=== PATIENT | female | born 1970 | race Caucasian/White ===

== ENCOUNTER 2023-06-22 22:24 | Inpatient (IN) | payer BC ==
[2023-06-22] MEDS: MORPHINE SULFATE 4 MG/ML SYRINGE IV STA (23:55)
--- NOTE | 2023-06-23 01:34 | P.GSHP ---
History of Present Illness H&P Date: 06/23/23 CHIEF COMPLAINT: Right lower quadrant abdominal pain with appendicitis for over 1 day. HISTORY OF PRESENT ILLNESS: The patient is a 53-year-old female who presents with over 24-hour history of generalized pain, now localized to right lower quadrant abdominal abdomen pain. at bedside giveS additional history where patient has personal history of perforated bowel following tubal ligation many years ago. Patient was transferred from outside facility [facility] with diagnosis of acute appendicitis. Abdominal pain has been present for less than 36 but more than 24 hours. PAST MEDICAL HISTORY: See list and reviewed PAST SURGICAL HISTORY: See list and reviewed CURRENT MEDICATIONS: See list and reviewed ALLERGIES: See list and reviewed SOCIAL HISTORY: See list and reviewed FAMILY HISTORY: See list and reviewed REVIEW OF ORGAN SYSTEMS: CONSTITUTIONAL: Present fever, no chills. Denies recent weight loss. HEENT: Denies any trouble with vision, hearing or nosebleeds. No difficulty swallowing. LYMPHATIC: The patient denies any lumps and bumps around the neck. ENDOCRINE: Denies any thyroid disorders. Denies any blood sugar glucose intolerance. RESPIRATORY: Denies shortness of breath including chronic cough. CARDIOVASCULAR: Denies history of chest pain with exertion. GASTROINTESTINAL: Prior perforated bowel during gynecological procedure. GENITOURINARY: Denies any blood in urine or increased urinary frequency. MUSCULOSKELETAL: Denies current joint arthritis. NEUROLOGIC: Denies any numbness or tingling along the distal extremities. No seizure disorders or headaches. PSYCHIATRIC: Denies any depression or suicidal ideation. HEMATOLOGIC: Denies any abnormal bleeding or bruising. PHYSICAL EXAMINATION: VITALS: Reviewed. GENERAL: Well-developed and in no acute distress. Pleasant. HEENT: No sclera icterus. Extraocular movements grossly intact. Moist buccal mucosa. Head is atraumatic, normocephalic. Hears conversational speech. No nasal drainage. NECK: Supple without lymphadenopathy. No JV distention. CHEST: Non-labored respirations and equal bilateral excursions. CARDIOVASCULAR: Regular rate and rhythm. Palpable 2+ radial pulses. ABDOMEN: Right lower quadrant pain without peritonitis. MUSCULOSKELETAL: No clubbing, cyanosis or edema. NEUROLOGIC: No focal or lateralizing signs. PSYCH: Appropriate affect. Alert and oriented to person, place and time. SKIN: Well perfused. Good skin turgor. STUDIES: CT of the abdomen and pelvis report demonstrated appendicitis without rupture ASSESSMENT: 1. Right lower quadrant pain. 2. Appendicitis PLAN: 1. I have discussed benefits and risks of robotic appendectomy. 2. Bilateral SCDs. 3. Patient is elevated risk due to pre-existing history of pelvic surgery with complication of perforated bowel and risk of adhesions. Past Medical History Past Medical History: Hyperlipidemia, Hypertension Additional Past Medical History / Comment(s): AAA History of Any Multi-Drug Resistant Organisms: None Reported Past Surgical History: Bowel Resection, Section Past Psychological History: No Psychological Hx Reported Smoking Status: Current every day smoker Past Alcohol Use History: None Reported Past Drug Use History: None Reported Medications and Allergies Allergies Allergy/AdvReac Type Severity Reaction Status Date / Time No Known Allergies Allergy Verified 06/22/23 22:37 Surgical - Exam Vital Signs Temp Pulse Resp BP Pulse Ox 102.3 F H 122 H 20 142/81 92 L 06/22/23 22:26 06/22/23 22:26 06/22/23 22:26 06/22/23 22:26 06/22/23 22:26
[2023-06-23] MEDS ORDERED: NALOXONE 0.4 MG/ML 1 ML VIAL IV PRN (01:36)
[2023-06-23] MEDS ORDERED: ONDANSETRON 4 MG/2 ML VIAL IVP PRN (01:36)
[2023-06-23] MEDS ORDERED: HYDROmorphone 1 MG/ML 1 ML SYRINGE IVP PRN (01:36)
[2023-06-23] MEDS ORDERED: ACETAMINOPHEN TAB 325 MG TAB PO PRN (01:36)
--- NOTE | 2023-06-23 01:50 | ED ---
Abdominal Pain HPI - General Chief Complaint: Abdominal Pain Stated Complaint: ABD Pain Time Seen by Provider: 06/22/23 22:38 Source: patient, EMS Mode of arrival: EMS Limitations: no limitations - History of Present Illness Initial Comments: This patient is a 53-year-old woman who is transferred here from [facility]. The patient had gone there to have evaluation for abdominal pain, greatest in the right lower quadrant that has been present for the past day. The patient's workup there included CT scan that was read as demonstrating acute appendicitis. The patient was then transferred here. Complaint: abdominal pain Onset/Timin -: days(s) Location: RLQ Radiation: none Migration to: no migration Severity: severe Quality: aching Consistency: constant Improves With: nothing Worsens With: nothing Associated Symptoms: nausea - Related Data Home Medications Medication Instructions Recorded Confirmed Cyclobenzaprine [Flexeril] 5 - 10 mg PO HS PRN 06/23/23 06/23/23 Losartan [Cozaar] 25 mg PO DAILY 06/23/23 06/23/23 Simvastatin [Zocor] 10 mg PO HS 06/23/23 06/23/23 Previous Rx's Medication Instructions Recorded Acetaminophen Tab [Tylenol] 1,000 mg PO Q6HR PRN #30 tablet 06/25/23 Amoxic-Pot Clav 875-125Mg 1 tab PO Q12HR 10 Days #20 tab 06/25/23 [Augmentin 875-125] Ibuprofen [Motrin] 600 mg PO Q8HR PRN #30 tab 06/25/23 Metoprolol Tartrate [Lopressor] 12.5 mg PO BID #90 tab 06/25/23 Allergies Allergy/AdvReac Type Severity Reaction Status Date / Time No Known Allergies Allergy Verified 06/23/23 09:19 Review of Systems ROS Statement: Those systems with pertinent positive or pertinent negative responses have been documented in the HPI. ROS Other: All systems not noted in ROS Statement are negative. Constitutional: Denies: fever, chills Respiratory: Denies: cough, dyspnea Cardiovascular: Denies: chest pain, palpitations Gastrointestinal: Reports: abdominal pain, nausea. Denies: vomiting, diarrhea, constipation, melena, hematochezia Genitourinary: Denies: dysuria, hematuria Musculoskeletal: Denies: back pain Skin: Denies: rash Neurological: Denies: headache, weakness, numbness Hematological/Lymphatic: Denies: easy bleeding Past Medical History Past Medical History: Hyperlipidemia, Hypertension Additional Past Medical History / Comment(s): AAA History of Any Multi-Drug Resistant Organisms: None Reported Past Surgical History: Bowel Resection, Section Past Psychological History: No Psychological Hx Reported Smoking Status: Current every day smoker Past Alcohol Use History: None Reported Past Drug Use History: None Reported General Exam Limitations: no limitations General appearance: alert, in no apparent distress Head exam: Present: atraumatic, normocephalic Eye exam: Present: normal appearance. Absent: scleral icterus, conjunctival injection Respiratory exam: Present: normal lung sounds bilaterally. Absent: respiratory distress, wheezes, rales, rhonchi, stridor, accessory muscle use Cardiovascular Exam: Present: normal rhythm, tachycardia, normal heart sounds. Absent: systolic murmur, diastolic murmur, rubs, gallop GI/Abdominal exam: Present: soft, tenderness, guarding, rebound. Absent: distended, rigid, mass, pulsatile mass, hernia Extremities exam: Present: normal inspection, normal capillary refill. Absent: pedal edema, calf tenderness Back exam: Present: normal inspection. Absent: CVA tenderness (R), CVA tenderness (L) Neurological exam: Present: alert Skin exam: Present: warm, dry, intact, normal color. Absent: rash Course Vital Signs 06/22/23 06/22/23 06/23/23 22:26 22:37 00:00 Temperature 102.3 F H 98.6 F Pulse Rate 122 H 88 109 H Pulse Rate [ Pulse Oximetery ] Respiratory 20 18 18 Rate Blood Pressure 142/81 196/103 124/71 Blood Pressure [Left Arm] O2 Sat by Pulse 92 L 98 93 L Oximetry 06/23/23 06/23/23 01:00 02:35 Temperature 98.3 F Pulse Rate 112 H Pulse Rate [ 112 H Pulse Oximetery ] Respiratory 19 16 Rate Blood Pressure 102/57 Blood Pressure 96/55 [Left Arm] O2 Sat by Pulse 96 96 Oximetry Medical Decision Making - Medical Decision Making Was pt. sent in by a medical professional or institution (, PA, [employer], urgent care, hospital, or longterm...) When possible be specific @ -Patient is transferred here from outside hospital Did you speak to anyone other than the patient for history (EMS, parent, family, police, friend...)? What history was obtained from this source @ -[No] Did you review nursing and triage notes (agree or disagree)? Why? @ -[I reviewed and agree with nursing and triage notes] Were old charts reviewed (outside hosp., previous admission, EMS record, old EKG, old radiological studies, urgent care reports/EKG's, longterm records)? Report findings @ -[I reviewed the charts from the outside hospital Differential Diagnosis (chest pain, altered mental status, abdominal pain women, abdominal pain men, vaginal bleeding, weakness, fever, dyspnea, syncope, headache, dizziness, GI bleed, back pain, seizure, CVA, palpatations, mental health, musculoskeletal)? @ -[no differential Abdominal Pain Women: Appendicitis, Cholecystitis, diverticulosis, ischemic bowel, pancreatitis, hepatitis, UTI, gastroenteritis, AAA, incarcerated hernia, bowel obstruction, constipation, inflammatory bowel, hepatitis, peptic ulcer disease, splenic infarction, perforated viscus, vulvitis, ovarian torsion, PID, kidney stone, placenta abruption, this is not meant to be an all-inclusive list EKG interpreted by me (3pts min.). @ -[As above] X-rays interpreted by me (1pt min.). @ -[None done] CT interpreted by me (1pt min.). @ -[None done] U/S interpreted by me (1pt. min.). @ -[None done] What testing was considered but not performed or refused? (CT, X-rays, U/S, labs)? Why? @ -[None] What meds were considered but not given or refused? Why? @ -[None] Did you discuss the management of the patient with other professionals (professionals i.e. , PA, [employer], lab, RT, psych nurse, social service agency director, land surveyor assistant, teacher, special service officer, field case manager)? Give summary @ -[Case discussed with the surgeon who will admit and will take to the OR. Was smoking cessation discussed for >3mins.? @ -[No] Was critical care preformed (if so, how long)? @ -[No] Were there social determinants of health that impacted care today? How? (Homelessness, low income, unemployed, alcoholism, drug addiction, transportation, low edu. Level, literacy, decrease access to med. care, long term, rehab)? @ -[No] Was there de-escalation of care discussed even if they declined (Discuss DNR or withdrawal of care, Hospice)? DNR status @ -[No] What co-morbidities impacted this encounter? (DM, HTN, Smoking, COPD, CAD, Cancer, CVA, ARF, Chemo, Hep., AIDS, mental health diagnosis, sleep apnea, morbid obesity)? @ -[None] Was patient admitted / discharged? Hospital course, mention meds given and route, prescriptions, significant lab abnormalities, going to OR and other pertinent info. @ -[Patient admitted with the intent of going to OR. Fluids are continued patient is NPO. Undiagnosed new problem with uncertain prognosis? @ -[No] Drug Therapy requiring intensive monitoring for toxicity (Heparin, Nitro, Insulin, Cardizem)? @ -[No] Were any procedures done? @ -[No] Diagnosis/symptom? @ -[Acute appendicitis Acute, or Chronic, or Acute on Chronic? @ -[Acute Uncomplicated (without systemic symptoms) or Complicated (systemic symptoms)? @ -[Uncomplicated Side effects of treatment? @ -[No] Exacerbation, Progression, or Severe Exacerbation? @ -[No] Poses a threat to life or bodily function? How? (Chest pain, USA, [place], pneumonia, PE, COPD, DKA, ARF, appy, cholecystitis, CVA, Diverticulitis, Homicidal, Suicidal, threat to staff... and all critical care pts) @ -[No] - Lab Data Result diagrams: 06/25/23 10:44 06/25/23 10:44 Disposition Clinical Impression: Appendicitis Disposition: ADMITTED IP TO THIS [facility] Condition: Stable Is patient prescribed a controlled substance at d/c from ED?: No
[2023-06-23] MEDS: SODIUM CHLORIDE 0.9% 1,000 ML IV SCH (02:14)
[2023-06-23] MEDS: HEPARIN SODIUM,PORCINE 5,000 UNIT/ML 1 ML VIAL SQ STA (02:15)
[2023-06-23] MEDS: DEXAMETHASONE SOD PHOSPHATE 4 MG/ML 1 ML VIAL IV ONE (02:23)
[2023-06-23] MEDS: ONDANSETRON 4 MG/2 ML VIAL IVP ONE (02:30)
[2023-06-23] MEDS: KETOROLAC 15 MG/ML 1 ML VIAL IVP SCH (02:30)
[2023-06-23] MEDS: metroNIDAZOLE-NS PMX 500 MG in SALINE 100 100ML.BAG IVPB STA (02:30)
[2023-06-23] MEDS: IV FLUID CONTINUATION 1,000 ML IV ONE (02:35)
[2023-06-23] MEDS ORDERED: LIDOCAINE 1% INJ 10MG/ML (20 ML MDV) ONE (02:50)
[2023-06-23] MEDS ORDERED: PHENYLEPHRINE-0.9% NACL SYG 1,000 MCG/10 ML SYRINGE ONE (02:50)
[2023-06-23] MEDS ORDERED: NEOSTIGMINE 1 MG/ML 10 ML VIAL ONE (02:50)
[2023-06-23] MEDS ORDERED: DEXAMETHASONE SOD PHOSPHATE 4 MG/ML 1 ML VIAL ONE (02:50)
[2023-06-23] MEDS ORDERED: fentaNYL (PF) 50 MCG/ML 2 ML AMP ONE (02:50)
[2023-06-23] MEDS ORDERED: ROCURONIUM 10 MG/ML (5 ML VIAL) IV ONE (02:50)
[2023-06-23] MEDS ORDERED: PROPOFOL 10 MG/ML 20 ML VIAL IV ONE (02:50)
[2023-06-23] MEDS ORDERED: MIDAZOLAM 2 MG/2 ML VIAL ONE (02:50)
[2023-06-23] MEDS ORDERED: GLYCOPYRROLATE 0.2 MG/ML 2 ML VIAL ONE (02:50)
[2023-06-23] MEDS ORDERED: SUCCINYLCHOLINE CHLORIDE 200 MG/10 ML VIAL IV ONE (02:50)
[2023-06-23 03:10] LABS: ALT 11 U/L (4-34); AST 16 U/L (14-36); African American GFR (CKD) >90 (>60 ml/min/1.73 sqM); Albumin 3.1 g/dL (3.5-5.0); Alkaline Phosphatase 75 U/L (38-126); Anion Gap 6 mmol/L; Blood Urea Nitrogen 8 mg/dL (7-17); Calcium 7.9 mg/dL (8.4-10.2); Carbon Dioxide 23 mmol/L (22-30); Chloride 108 mmol/L (98-107); Glucose 120 mg/dL (74-99); Non-African American GFR(CKD) >90 (>60 ml/min/1.73 sqM); Potassium 4.2 mmol/L (3.5-5.1); Sodium 137 mmol/L (137-145); Total Bilirubin 0.8 mg/dL (0.2-1.3); Total Protein 5.8 g/dL (6.3-8.2)
[2023-06-23] MEDS: LIDOCAINE 1%-EPI 1:100,000 20 ML VIAL SQ ONE (03:13)
[2023-06-23 03:38] LABS: Basophils % (A) 0 %; Eosinophils # (A) 0.1 k/uL (0-0.7); Eosinophils % (A) 0 %; HCT 39.4 % (34.0-46.0); HGB 12.6 gm/dL (11.4-16.0); Lymphocytes % (A) 5 %; MCH 30.6 pg (25.0-35.0); MCHC 32.1 g/dL (31.0-37.0); MCV 95.5 fL (80.0-100.0); Mean Platelet Volume 7.8; Monocytes # (A) 0.7 k/uL (0-1.0); Monocytes % (A) 4 %; Neutrophils # (A) 17.5 k/uL (1.3-7.7); Neutrophils % (A) 91 %; Platelet Count 347 k/uL (150-450); RBC 4.12 m/uL (3.80-5.40); WBC 19.3 k/uL (3.8-10.6)
--- NOTE | 2023-06-23 04:04 | P.PN ---
Progress Note - Text Progress Note Date: 06/23/23 Patient family gives additional history of fevers while at outside facility and presently with white count over 19,000. Presentation consistent with sepsis. Sepsis protocol initiated. Family also disclosed new abdominal aortic aneurysm almost 6 cm in size. Vascular consultation to be obtained.
--- NOTE | 2023-06-23 04:07 | P.OP ---
Date of Procedure: 06/23/23 Description of Procedure: SURGEON: AARTI KARIMI MD Preoperative Diagnosis: 1. Acute appendicitis 2. Sepsis due to acute appendicitis 3. Hyperlipidemia 4. Hypertensive heart disease 5. Abdominal aortic aneurysm Postoperative Diagnosis: 1. Gangrene appendicitis with sepsis and localized right lower quadrant peritonitis, microperforation 2. Sepsis due to acute appendicitis 3. Hyperlipidemia 4. Hypertensive heart disease 5. Abdominal aortic aneurysm Procedure(s) Performed: 1. Robotic-assisted daVinci Xi laparoscopic appendectomy Anesthesia: GETA, local Estimated Blood Loss (ml): 5 Pathology: other (appendix), aerobic anaerobic cultures Condition: stable Disposition: floor Operative Findings: 1. Gangrene appendicitis involving the entire appendix with localized right lower quadrant peritonitis 2. Terminal ileum unremarkable 3. Cecum unremarkable INDICATIONS: The patient is a 53-year-old female who presents with acute appendicitis including sepsis. Benefits and risks, including infection, open surgery, and bleeding for additional surgery was discussed at length. Informed consent was obtained. All questions of the patient and family were answered. Emergent surgical intervention were described. DESCRIPTION: The patient was transferred to the operating room and placed in supine position. The patient had previously voided. The abdomen was then prepped and draped in standard sterile fashion as Ioban was placed along the abdomen to minimize any contamination of skin floor. After a timeout protocol was performed, attention was then brought to the left upper quadrant whereby a 0 degree 5 mm laparoscopic trocar entry was performed. The abdominal cavity was entered and insufflated to 12 mmHg pressure, which was tolerated well. Diagnostic laparoscopy demonstrated no injury to bowel, viscera or mesentery. Next a robotic 8-mm trocar was placed along the left lower quadrant, 10-cm lateral to the midline. A 12 mm port was placed along the left upper quadrant and another 8-mm port left lateral abdominal wall. Ports were placed 8 cm apart from each other including 15-20 cm away from the target anatomy of the right pelvis. The patient was then placed in Trendelenburg position, at least 14 down and right side up at least 7. The robotic da Jv XI system was primed and docked from the left side of the patient. Using atraumatic graspers and vessel sealer, the robotic system was docked and primed as described. Instruments were interchanged by the instructional support assistant including graspers, robotic stapler and vessel sealer. Next, attention was brought to identify the cecum. A systematic view within the abdominal cavity was started with the small bowel which was unremarkable. The base of the cecum was unremarkable. Necrosis of the entire appendix was identified with localized inflammation and peritonitis identified with high risk of microperforation. The appendix was dissected free from its surrounding tissues. Blue 45 mm robotic staple loads were fired along the base of the appendix. The staple line was hemostatic. Hemostasis was checked prior to undocking the robot. The robot was undocked. I re-scrubbed into the case. The specimen was removed from the abdominal cavity with an Endo Catch bag through the 12 mm trocar at the left upper quadrant. Aerobic anaerobic cultures were obtained of the appendix. All instruments and pneumoperitoneum were evacuated from the abdominal cavity. Local anesthetic was infiltrated to all wounds for postop analgesia. All incisions were also cleansed with diluted hydrogen peroxide. The incisions were closed with 4-0 Monocryl. Exofin glue was applied to the rest of the skin incisions. The patient had tolerated the procedure well. The patient was extubated successfully. The patient was transferred to the postanesthesia care unit in stable condition.
[2023-06-23] MEDS: LACTATED RINGERS 1,000 ML IV SCH (05:04)
[2023-06-23] MEDS: SODIUM CHLORIDE 0.9% 500 ML 500 ML IV SCH (05:05)
[2023-06-23] MEDS: ACETAMINOPHEN TAB 500 MG TAB PO SCH (05:37)
[2023-06-23 06:05] LABS: ALT 10 U/L (4-34); AST 16 U/L (14-36); African American GFR (CKD) >90 (>60 ml/min/1.73 sqM); Albumin 2.9 g/dL (3.5-5.0); Albumin/Globulin Ratio 1.1; Alkaline Phosphatase 75 U/L (38-126); Anion Gap 6 mmol/L; Blood Urea Nitrogen 7 mg/dL (7-17); Calcium 7.6 mg/dL (8.4-10.2); Carbon Dioxide 21 mmol/L (22-30); Chloride 110 mmol/L (98-107); Globulin 2.7 g/dL; Glucose 139 mg/dL (74-99); Non-African American GFR(CKD) >90 (>60 ml/min/1.73 sqM); Potassium 3.8 mmol/L (3.5-5.1); Sodium 137 mmol/L (137-145); Total Bilirubin 0.5 mg/dL (0.2-1.3); Total Protein 5.6 g/dL (6.3-8.2)
[2023-06-23 06:08] LABS: INR 1.2 (<1.2); Partial Thromboplastin Time 27.1 sec (22.0-30.0); Prothrombin Time 12.4 sec (10.0-12.5)
[2023-06-23] MEDS: HEPARIN SODIUM,PORCINE 5,000 UNIT/ML 1 ML VIAL SQ SCH (08:43)
[2023-06-23] MEDS: PANTOPRAZOLE 40 MG/10 ML VIAL IV SCH (08:43)
--- NOTE | 2023-06-23 12:10 | P.CRDCN ---
History of Present Illness Consult date: 06/23/23 Requesting physician: Viji Amin Reason for Consult (text): elevated troponin Chief complaint: abdominal pain History of present illness: This is a pleasant 53-year-old female patient who does not follow regularly with cardiology. She has had no previous cardiac workup. She has a history of hypertension, hyperlipidemia and current nicotine dependence smoking 1 pack/day. She presented to [facility] with complaints of abdominal pain that started the night before at which time she had diarrhea. CT scan showed evidence of acute appendicitis with incidental finding of 5.7 cm AAA which has not been diagnosed in the past. She had evidence of sepsis secondary to the appendicitis. She was transferred here and underwent appendectomy by Dr. Amin. The appendix was gangrenous with sepsis and localized right lower quadrant peritonitis, microperforation. She is currently on IV antibiotics. Overall she is feeling sore and quite tired. We were asked to see the patient in consultation due to postoperative troponin elevation which came back at 0.351 and 0.596. EKG upon arrival to our ER here showed diffuse ST T wave abnormalities with no prior to compare. EKG this morning showed improvement in the ST-T wave changes. She denies any complaints of chest discomfort, shortness of breath, orthopnea, PND, palpitations, dizziness, lightheadedness or syncope. Blood pressure is on the low side. Past Medical History Past Medical History: Hyperlipidemia, Hypertension Additional Past Medical History / Comment(s): AAA, smoker History of Any Multi-Drug Resistant Organisms: None Reported Past Surgical History: Appendectomy, Bowel Resection, Section Past Anesthesia/Blood Transfusion Reactions: No Reported Reaction Past Psychological History: No Psychological Hx Reported Smoking Status: Current every day smoker Past Alcohol Use History: None Reported Past Drug Use History: None Reported Medications and Allergies Home Medications Medication Instructions Recorded Confirmed Type Cyclobenzaprine [Flexeril] 5 - 10 mg PO HS PRN 06/23/23 06/23/23 History Losartan [Cozaar] 25 mg PO DAILY 06/23/23 06/23/23 History Simvastatin [Zocor] 10 mg PO HS 06/23/23 06/23/23 History Allergies Allergy/AdvReac Type Severity Reaction Status Date / Time No Known Allergies Allergy Verified 06/23/23 09:19 Physical Exam Vitals: Vital Signs Temp Pulse Pulse Resp BP BP Pulse Ox 06/23/23 07:35 97.9 F 95 15 106/69 97 06/23/23 06:28 94 97/64 94 L 06/23/23 05:58 96 97/64 92 L 06/23/23 05:43 101 H 99/63 06/23/23 05:28 102 H 100/66 91 L 06/23/23 05:13 101 H 104/68 90 L 06/23/23 04:58 99.6 F 104 H 18 101/66 92 L 06/23/23 04:50 16 92 L 06/23/23 04:41 97 16 103/59 96 06/23/23 04:26 105 H 18 103/59 99 06/23/23 04:11 100 18 97/55 94 L 06/23/23 03:56 98.4 F 102 H 18 105/56 93 L 06/23/23 02:35 98.3 F 112 H 16 96/55 96 06/23/23 01:00 112 H 19 102/57 96 06/23/23 00:00 98.6 F 109 H 18 124/71 93 L 06/22/23 22:37 88 18 196/103 98 06/22/23 22:26 102.3 F H 122 H 20 142/81 92 L Intake and Output 06/22/23 06/23/23 06/23/23 22:59 06:59 14:59 Intake Total 900 Output Total 5 Balance 895 Intake: IV 900 Output: Estimated Blood Loss 5 Other: # Voids 1 1 Weight 74.843 kg 74.843 kg PHYSICAL EXAMINATION: This is a 53-year-old female in no apparent distress at the time of my examination. VITAL SIGNS: Reviewed. HEENT: Head is atraumatic, normocephalic. Pupils are equal, round. Sclerae anicteric. Conjunctivae are clear. Mucous membranes of the mouth are moist. Neck is supple. There is no elevated jugular venous pressure. No carotid bruit is heard. CHEST EXAMINATION: Lungs revealed diminished air entry bilaterally. No wheezes rales or rhonchi. Respirations even and nonlabored. HEART EXAMINATION: Heart regular, positive S1 and S2. No S3. No S4. No clicks, rubs or murmurs. ABDOMEN: Soft, tender. Bowel sounds are hypoactive. No organomegaly noted. EXTREMITIES: 2+ peripheral pulses with no evidence of peripheral edema and no calf tenderness noted. NEUROLOGIC EXAMINATION: Patient is awake, alert and oriented x3. Results 06/23/23 02:40 06/23/23 05:28 Cardiac Enzymes 06/23/23 06/23/23 06/23/23 Range/Units 02:40 05:28 05:28 AST 16 16 (14-36) U/L Troponin I 0.351 H* (0.000-0.034) ng/mL 06/23/23 Range/Units 08:16 AST (14-36) U/L Troponin I 0.596 H* (0.000-0.034) ng/mL Coagulation 06/23/23 Range/Units 05:28 PT 12.4 (10.0-12.5) sec APTT 27.1 (22.0-30.0) sec CBC 06/23/23 Range/Units 02:40 WBC 19.3 H (3.8-10.6) k/uL RBC 4.12 (3.80-5.40) m/uL Hgb 12.6 (11.4-16.0) gm/dL Hct 39.4 (34.0-46.0) % Plt Count 347 (150-450) k/uL Comprehensive Metabolic Panel 06/23/23 06/23/23 Range/Units 02:40 05:28 Sodium 137 137 (137-145) mmol/L Potassium 4.2 3.8 (3.5-5.1) mmol/L Chloride 108 H 110 H (98-107) mmol/L Carbon Dioxide 23 21 L (22-30) mmol/L BUN 8 7 (7-17) mg/dL Creatinine 0.54 0.56 (0.52-1.04) mg/dL Glucose 120 H 139 H (74-99) mg/dL Calcium 7.9 L 7.6 L (8.4-10.2) mg/dL AST 16 16 (14-36) U/L ALT 11 10 (4-34) U/L Alkaline Phosphatase 75 75 (38-126) U/L Total Protein 5.8 L 5.6 L (6.3-8.2) g/dL Albumin 3.1 L 2.9 L (3.5-5.0) g/dL Current Medications Generic Name Dose Route Start Last Admin Trade Name Freq PRN Reason Stop Dose Admin Acetaminophen 650 mg 06/23/23 01:36 Acetaminophen Tab 325 Mg Tab PO Q6HR PRN Mild Pain or Fever > 100.5 Acetaminophen 1,000 mg 06/23/23 06:00 06/23/23 05:37 Acetaminophen Tab 500 Mg Tab PO 1,000 mg Q6HR DUANE Administration Fentanyl Citrate 50 mcg 06/24/23 07:00 Fentanyl (Pf) 50 Mcg/Ml 2 Ml Amp IV 06/24/23 23:00 Q3M PRN Phase I - Pain Control Heparin Sodium (Porcine) 5,000 unit 06/23/23 09:00 06/23/23 08:43 Heparin Sodium,Porcine 5,000 Unit/Ml 1 Ml Vial SQ 5,000 unit Q12HR DUANE Administration Hydromorphone HCl 1 mg 06/23/23 01:36 Hydromorphone 1 Mg/Ml 1 Ml Syringe IVP Q3HR PRN Severe Pain (Scale 7 to 10) Hydromorphone HCl 0.5 mg 06/24/23 07:00 Hydromorphone 0.5 Mg/0.5 Ml Syringe IVP 06/24/23 23:00 Q5M PRN Phase 1 or 2 - Pain Control Sodium Chloride 1,000 mls @ 150 mls/hr 06/23/23 01:45 06/23/23 08:44 Saline 0.9% IV Not Given .Q6H40M DUANE Lactated Ringer's 1,000 mls @ 20 mls/hr 06/23/23 02:00 06/23/23 05:04 Lactated Ringers IV Not Given .Q24H [facility] Piperacillin Sod/Tazobactam 100 mls @ 25 mls/hr 06/23/23 11:00 Sod 3.375 gm/ Sodium Chloride IVPB Q8H [facility] Protocol Ketorolac Tromethamine 15 mg 06/23/23 01:45 06/23/23 05:36 Ketorolac 15 Mg/Ml 1 Ml Vial IVP 06/28/23 01:46 15 mg Q6HR DUANE Administration Midazolam HCl 2 mg 06/24/23 07:00 Midazolam 2 Mg/2 Ml Vial IV 06/24/23 23:00 ONCE PRN Pre-Op Anxiety Naloxone HCl 0.2 mg 06/23/23 01:36 Naloxone 0.4 Mg/Ml 1 Ml Vial IV Q2M PRN Opioid Reversal Ondansetron HCl 4 mg 06/23/23 01:36 Ondansetron 4 Mg/2 Ml Vial IVP Q8HR PRN Nausea And Vomiting Pantoprazole Sodium 40 mg 06/23/23 09:00 06/23/23 08:43 Pantoprazole 40 Mg/10 Ml Vial IV 40 mg DAILY DUANE Administration Intake and Output 06/22/23 06/23/23 06/23/23 22:59 06:59 14:59 Intake Total 900 Output Total 5 Balance 895 Intake: IV 900 Output: Estimated Blood Loss 5 Other: # Voids 1 1 Weight 74.843 kg 74.843 kg 06/23/23 02:40 06/23/23 05:28 Assessment and Plan Assessment: #1 acute appendicitis with evidence of sepsis, gangrene and microperforation status post appendectomy #2 elevated troponin of unclear significance #3 5.7 cm AAA, newly diagnosed #4 hypertension #5 hyperlipidemia #6 nicotine dependence Plan: From cardiology's perspective we will obtain a 2D echo with Doppler study to assess cardiac structure and function. Will add low-dose aspirin, statin and low-dose beta-raulito. Patient will require further ischemic workup at a later date when she has recovered from sepsis. Discussed with patient and family importance of smoking cessation. We will continue to follow the patient and provide further recommendations accordingly. [employer] OFF[employer]ER note has been reviewed, I agree with a documented findings and plan of care. Patient was seen and examined.
[2023-06-23] MEDS: PIPERACILLIN-TAZOBACTAM 3.375 GM in SODIUM CHLORIDE 0.9% 100 ML IVPB SCH (12:27)
[2023-06-23] MEDS: METOPROLOL TARTRATE 12.5 MG TAB PO SCH (12:29)
[2023-06-23] MEDS: ASPIRIN 81 MG PO SCH (12:29)
--- NOTE | 2023-06-23 13:29 | CA ---
Transthoracic Echo Report Name: Susan Zuniga Age: 53 Gender: F : 1970 Exam Date: 06/23/2023 12:40 Exam Location: [place] [facility] Ht (in): 66 Wt (lb): 165 Ordering Physician: Deepika Berger Attending/Referring Phys: Wire Photo Operator News Rachel Meraz RDCS Procedure CPT: Indications: elevated troponin Cardiac Hx: Technical Quality: Fair Contrast 1: Total Dose (mL): Contrast 2: Total Dose (mL): MEASUREMENTS (Male / Female) Normal Values 2D ECHO LV Diastolic Diameter PLAX 4.1 cm 4.2 - 5.9 / 3.9 - 5.3 cm LV Systolic Diameter PLAX 2.9 cm IVS Diastolic Thickness 1.1 cm 0.6 - 1.0 / 0.6 - 0.9 cm LVPW Diastolic Thickness 1.0 cm 0.6 - 1.0 / 0.6 - 0.9 cm LV Relative Wall Thickness 0.5 RV Internal Dim ED PLAX 3.0 cm LA Systolic Diameter LX 3.5 cm 3.0 - 4.0 / 2.7 - 3.8 cm LA Volume 36.5 cm??? 18 - 58 / 22 - 52 cm??? LA Volume Index 19.4 cm???/m??? 16 - 28 cm???/m??? M-MODE Aortic Root Diameter MM 2.9 cm AV Cusp Separation MM 2.0 cm DOPPLER AV Peak Velocity 133.6 cm/s AV Peak Gradient 7.1 mmHg MV Area PHT 3.2 cm??? Mitral E Point Velocity 96.9 cm/s Mitral A Point Velocity 125.0 cm/s Mitral E to A Ratio 0.8 MV Deceleration Time 236.8 ms FINDINGS Left Ventricle Left ventricular ejection fraction is estimated at 55-60 %. Left ventricular cavity size normal. No obvious regional wall motion abnormalities. Right Ventricle Normal right ventricular size and function. Unable to estimate the right ventricular systolic pressure. Right Atrium Normal right atrial size. No right atrial thrombus or mass seen. Left Atrium Normal left atrial size. No left atrial thrombus or mass present. Mitral Valve Structurally normal mitral valve. No mitral stenosis, or prolapse.trace to mild mitral regurgitation. Aortic Valve Trileaflet aortic valve. No aortic valve stenosis or regurgitation. Tricuspid Valve Structurally normal tricuspid valve. No tricuspid stenosis,or prolapse.trace to mild tricuspid regurgitation. Pulmonic Valve Pulmonic valve not well visualized. Pericardium No pericardial effusion. Aorta Normal size aortic root and proximal ascending aorta. CONCLUSIONS 1. Normal ventricle size and systolic function 2. Trace to mild mitral and tricuspid regurgitation Previewed by: Dr. Malia Arellano MD (Electronically Signed) Final Date: 23 Jun 2023 13:28
[2023-06-23] MEDS: ATORVASTATIN 40 MG TAB PO SCH (20:34)
--- NOTE | 2023-06-23 22:38 | P.CONS ---
History of Present Illness - Reason for Consult Consult date: 06/23/23 Sepsis, gangrenous appendicitis Requesting physician: Viji Amin - Chief Complaint Abdominal pain X few days - History of Present Illness Patient is a 53-year-old female with a past medical history significant for hypertension hyperlipidemia presenting to the hospital with abdominal pain of 1 day duration patient pain initially was generalized subsequently has been mostly to the right lower quadrant area patient describing the pain to be sharp moderate to severe intensity without any radiation, patient has been initially evaluated [facility] with the patient has been diagnosed with acute appendicitis and subsequently patient has been sent to [facility] for further evaluation patient was taken to the OR in this patient who did have evidence of gangrenous appendicitis with localized right lower quadrant peritonitis and microperforation status post laparoscopic appendectomy as well as abdominal cultures patient did receive cefazolin and Flagyl preoperatively infectious disease was consulted for further management of antibiotic therapy patient on presentation to the hospital did have a temperature of 102.3 F patient was tachycardic but not hypotensive mildly hypoxic currently on 2 L nasal cannula oxygen did have white count 19.3 with a left shift creatinine was normal liver enzymes normal electrolytes were normal Review of Systems Positive point and negatives has been mentioned in the HPI, complete review of systems was performed and all other systems are negative Past Medical History Past Medical History: Hyperlipidemia, Hypertension Additional Past Medical History / Comment(s): AAA, smoker History of Any Multi-Drug Resistant Organisms: None Reported Past Surgical History: Appendectomy, Bowel Resection, Section Past Anesthesia/Blood Transfusion Reactions: No Reported Reaction Past Psychological History: No Psychological Hx Reported Smoking Status: Current every day smoker Past Alcohol Use History: None Reported Past Drug Use History: None Reported Medications and Allergies Home Medications Medication Instructions Recorded Confirmed Type Cyclobenzaprine [Flexeril] 5 - 10 mg PO HS PRN 06/23/23 06/23/23 History Losartan [Cozaar] 25 mg PO DAILY 06/23/23 06/23/23 History Simvastatin [Zocor] 10 mg PO HS 06/23/23 06/23/23 History Acetaminophen Tab [Tylenol] 1,000 mg PO Q6HR PRN #30 tablet 06/25/23 Rx Amoxic-Pot Clav 875-125Mg 1 tab PO Q12HR 10 Days #20 tab 06/25/23 Rx [Augmentin 875-125] Ibuprofen [Motrin] 600 mg PO Q8HR PRN #30 tab 06/25/23 Rx Metoprolol Tartrate [Lopressor] 12.5 mg PO BID #90 tab 06/25/23 Rx Allergies Allergy/AdvReac Type Severity Reaction Status Date / Time No Known Allergies Allergy Verified 06/23/23 09:19 Physical Exam Vitals: Vital Signs Temp Pulse Pulse Resp BP BP Pulse Ox 06/23/23 07:35 97.9 F 95 15 106/69 97 06/23/23 06:28 94 97/64 94 L 06/23/23 05:58 96 97/64 92 L 06/23/23 05:43 101 H 99/63 06/23/23 05:28 102 H 100/66 91 L 06/23/23 05:13 101 H 104/68 90 L 06/23/23 04:58 99.6 F 104 H 18 101/66 92 L 06/23/23 04:50 16 92 L 06/23/23 04:41 97 16 103/59 96 06/23/23 04:26 105 H 18 103/59 99 06/23/23 04:11 100 18 97/55 94 L 06/23/23 03:56 98.4 F 102 H 18 105/56 93 L 06/23/23 02:35 98.3 F 112 H 16 96/55 96 06/23/23 01:00 112 H 19 102/57 96 06/23/23 00:00 98.6 F 109 H 18 124/71 93 L 06/22/23 22:37 88 18 196/103 98 06/22/23 22:26 102.3 F H 122 H 20 142/81 92 L Intake and Output 06/22/23 06/23/23 06/23/23 22:59 06:59 14:59 Intake Total 900 Output Total 5 Balance 895 Intake: IV 900 Output: Estimated Blood Loss 5 Other: # Voids 1 1 Weight 74.843 kg 74.843 kg GENERAL DESCRIPTION: Middle-aged FEmale lying in bed, no distress. No tachypnea or accessory muscle of respiration use. HEENT: Shows Pallor , no scleral icterus. Oral mucous membrane is dry. No pharyngeal erythema or thrush NECK: Trachea central, no thyromegaly. LUNGS: Unlabored breathing. Clear to auscultation anteriorly. No wheeze or crackle. HEART: S1, S2, regular rate and rhythm. No loud murmur ABDOMEN: Soft, mild tenderness , no guarding or rigidity, no organomegaly EXTREMITIES: No edema of feet. SKIN: No rash, no masses palpable. NEUROLOGICAL: The patient is awake, alert, oriented x3, mood and affect normal. Results CBC & Chem 7: 06/25/23 10:44 06/25/23 10:44 Labs: Abnormal Lab Results - Last 24 Hours (Table) 06/23/23 06/23/23 06/23/23 Range/Units 02:40 02:40 05:28 WBC 19.3 H (3.8-10.6) k/uL Neutrophils # 17.5 H (1.3-7.7) k/uL INR (<1.2) Chloride 108 H (98-107) mmol/L Carbon Dioxide (22-30) mmol/L Glucose 120 H (74-99) mg/dL Calcium 7.9 L (8.4-10.2) mg/dL Troponin I 0.351 H* (0.000-0.034) ng/mL Total Protein 5.8 L (6.3-8.2) g/dL Albumin 3.1 L (3.5-5.0) g/dL 06/23/23 06/23/23 06/23/23 Range/Units 05:28 05:28 08:16 WBC (3.8-10.6) k/uL Neutrophils # (1.3-7.7) k/uL INR 1.2 H (<1.2) Chloride 110 H (98-107) mmol/L Carbon Dioxide 21 L (22-30) mmol/L Glucose 139 H (74-99) mg/dL Calcium 7.6 L (8.4-10.2) mg/dL Troponin I 0.596 H* (0.000-0.034) ng/mL Total Protein 5.6 L (6.3-8.2) g/dL Albumin 2.9 L (3.5-5.0) g/dL Assessment and Plan (1) Gangrenous appendicitis Status: Acute Code(s): K35.891 - OTHER ACUTE APPENDICITIS WITHOUT PERFORATION, WITH GANGRENE SNOMED Code(s): 6621538999 (2) Leukocytosis Status: Acute Code(s): D72.829 - ELEVATED WHITE BLOOD CELL COUNT, UNSPECIFIED SNOMED Code(s): 329870299 (3) Sepsis Status: Acute Code(s): A41.9 - SEPSIS, UNSPECIFIED ORGANISM SNOMED Code(s): 77618319 Plan: 1patient presented to hospital with sepsis in this patient who did have a fever tachycardia elevated white count source is acute gangrenous appendicitis with microperforation and peritonitis will need to cover for the enteric gram- negative both aerobes and anaerobes 2-blood and abdominal culture has been obtained results will be followed 3-we will start patient on Zosyn 3.375 g every 8 hours Question concern answered We will follow on clinical condition and cultures to further adjust medication if needed Thank you for this consultation we will follow the patient along with you Dictation was produced using [employer] dictation software. please excuse any grammatical, word or spelling errors. Time with Patient: Greater than 30
[2023-06-24] MEDS ORDERED: fentaNYL (PF) 50 MCG/ML 2 ML AMP IV PRN (07:00)
[2023-06-24] MEDS ORDERED: HYDROmorphone 0.5 MG/0.5 ML SYRINGE IVP PRN (07:00)
[2023-06-24] MEDS ORDERED: MIDAZOLAM 2 MG/2 ML VIAL IV PRN (07:00)
[2023-06-24 09:31] LABS: Basophils # (A) 0.03 X 10*3/uL (0.00-0.10); Basophils % (A) 0.2 %; Eosinophils # (A) 0 X 10*3/uL (0.04-0.35); Eosinophils % (A) 0 %; HGB 10.9 g/dL (12.0-15.0); Lymphocytes # (A) 2.11 X 10*3/uL (0.90-5.00); Lymphocytes % (A) 11.7 %; MCH 31.6 pg (27.0-32.0); MCV 95.7 FL (80.0-97.0); Mean Platelet Volume 9.9 FL (9.5-12.2); Monocytes # (A) 0.89 X 10*3/uL (0.20-1.00); Monocytes % (A) 4.9 %; NRBC Per 100 WBC 0 X 10*3/uL (0.00-0.01); Neutrophils # (A) 14.95 X 10*3/uL (1.80-7.70); Neutrophils % (A) 82.5 %; Platelet Count 325 X 10*3/uL (140-440); RBC 3.45 X 10*6/uL (4.10-5.20); RDW 13.4 % (11.5-14.5); WBC 18.11 X 10*3/uL (4.50-10.00)
[2023-06-24 09:44] LABS: BUN/Creat Ratio 19.83 Ratio (12.00-20.00); Blood Urea Nitrogen 11.9 mg/dL (9.0-27.0); Carbon Dioxide 20.5 mmol/L (21.6-31.8); Chloride 104 mmol/L (96-109); Glucose 113 mg/dL (70-110); Potassium 3.9 mmol/L (3.5-5.5); Sodium 135 mmol/L (135-145)
[2023-06-24 09:45] LABS: ALT 8 U/L (8-44); AST 19 U/L (13-35); Albumin 3.1 g/dL (3.8-4.9); Albumin/Globulin Ratio 1.48 Ratio (1.60-3.17); Alkaline Phosphatase 64 U/L (41-126); Calcium 7.8 mg/dL (8.7-10.3); Globulin 2.1 g/dL (1.6-3.3); Total Bilirubin 0.3 mg/dL (0.3-1.2); Total Protein 5.2 g/dL (6.2-8.2)
--- NOTE | 2023-06-24 11:35 | P.PN ---
Subjective Progress Note Date: 06/24/23 Patient had elevated troponins in setting of sepsis from gangrenous perforate appendicitis. Inpatient admission described. Monitior CBC Continue antibiotics Await vascular consultation for large AAA. May shower Advance diet to regular Disposition home pending antibiotic cultures for antibiotic management, vascular consultation. Objective - Vital Signs Vital signs: Vital Signs Temp 97.6 F 06/24/23 07:54 Pulse 67 06/24/23 07:54 Resp 18 06/24/23 07:54 BP 128/81 06/24/23 07:54 Pulse Ox 92 L 06/24/23 07:54 FiO2 Intake & Output 06/23/23 06/24/23 06/24/23 18:59 06:59 18:59 Intake Total 1800 Balance 1800 Intake: Intake, IV Titration 1800 Amount Piperacillin-Tazobactam 3 100 .375 gm In Sodium Chloride 0.9% 100 ml @ 25 mls/hr IVPB Q8H [facility] Rx#: [id number] Sodium Chloride 0.9% 1, 1700 000 ml @ 150 mls/hr IV . Q6H40M [facility] Rx#:[id number] Other: # Voids 1 1 1 - Labs CBC & Chem 7: 06/24/23 06:51 06/24/23 06:51 Labs: Abnormal Lab Results - Last 24 Hours (Table) 06/24/23 06/24/23 Range/Units 06:51 06:51 WBC 18.11 H (4.50-10.00) X 10*3/uL RBC 3.45 L (4.10-5.20) X 10*6/uL Hgb 10.9 L (12.0-15.0) g/dL Hct 33.0 L (37.2-46.3) % Immature Gran # 0.13 H (0.00-0.04) X 10*3/uL Neutrophils # 14.95 H (1.80-7.70) X 10*3/uL Eosinophils # 0 L (0.04-0.35) X 10*3/uL Carbon Dioxide 20.5 L (21.6-31.8) mmol/L Glucose 113 H (70-110) mg/dL Calcium 7.8 L (8.7-10.3) mg/dL Total Protein 5.2 L (6.2-8.2) g/dL Albumin 3.1 L (3.8-4.9) g/dL Albumin/Globulin Ratio 1.48 L (1.60-3.17) Ratio Microbiology - Last 24 Hours (Table) 06/23/23 03:35 Gram Stain - Preliminary Appendix Wound Culture - Preliminary Gram Neg Bacilli
--- NOTE | 2023-06-24 12:02 | P.PN ---
Subjective Progress Note Date: 06/24/23 This is a pleasant 53-year-old female patient who does not follow regularly with cardiology. She has had no previous cardiac workup. She has a history of hypertension, hyperlipidemia and current nicotine dependence smoking 1 pack/day. She presented to [facility] with complaints of abdominal pain that started the night before at which time she had diarrhea. CT scan showed evidence of acute appendicitis with incidental finding of 5.7 cm AAA which has not been diagnosed in the past. She had evidence of sepsis secondary to the appendicitis. She was transferred here and underwent appendectomy by Dr. Amin. The appendix was gangrenous with sepsis and localized right lower quadrant peritonitis, microperforation. She is currently on IV antibiotics. Overall she is feeling sore and quite tired. We were asked to see the patient in consultation due to postoperative troponin elevation which came back at 0.351 and 0.596. EKG upon arrival to our ER here showed diffuse ST T wave abnorma lities with no prior to compare. EKG this morning showed improvement in the ST- T wave changes. She denies any complaints of chest discomfort, shortness of breath, orthopnea, PND, palpitations, dizziness, lightheadedness or syncope. Blood pressure is on the low side. 06/24/2023 Patient was seen and examined sitting up in a chair. She is overall feeling better today. Continues to complain of abdominal soreness. She is tolerating low-dose beta-raulito. She is on aspirin and a statin. Echocardiogram with Doppler study showed normal LV systolic function with no segmental wall motion abnormalities and no significant valvular abnormalities. Objective - Vital Signs Vital signs: Vital Signs Temp 97.6 F 06/24/23 07:54 Pulse 67 06/24/23 07:54 Resp 18 06/24/23 07:54 BP 128/81 06/24/23 07:54 Pulse Ox 92 L 06/24/23 07:54 FiO2 Intake & Output 06/23/23 06/24/23 06/24/23 18:59 06:59 18:59 Intake Total 1800 Balance 1800 Intake: Intake, IV Titration 1800 Amount Piperacillin-Tazobactam 3 100 .375 gm In Sodium Chloride 0.9% 100 ml @ 25 mls/hr IVPB Q8H [facility] Rx#: [id number] Sodium Chloride 0.9% 1, 1700 000 ml @ 150 mls/hr IV . Q6H40M [facility] Rx#:[id number] Other: # Voids 1 1 1 - Exam HEENT: Head is atraumatic, normocephalic. Pupils are equal, round. Sclerae anicteric. Conjunctivae are clear. Mucous membranes of the mouth are moist. Neck is supple. There is no elevated jugular venous pressure. No carotid bruit is heard. CHEST EXAMINATION: Lungs revealed diminished air entry bilaterally. No wheezes rales or rhonchi. Respirations even and nonlabored. HEART EXAMINATION: Heart regular, positive S1 and S2. No S3. No S4. No clicks, rubs or murmurs. ABDOMEN: Soft, tender. Bowel sounds are hypoactive. No organomegaly noted. EXTREMITIES: 2+ peripheral pulses with no evidence of peripheral edema and no calf tenderness noted. NEUROLOGIC EXAMINATION: Patient is awake, alert and oriented x3. - Labs CBC & Chem 7: 06/24/23 06:51 06/24/23 06:51 Labs: Abnormal Lab Results - Last 24 Hours (Table) 06/24/23 06/24/23 Range/Units 06:51 06:51 WBC 18.11 H (4.50-10.00) X 10*3/uL RBC 3.45 L (4.10-5.20) X 10*6/uL Hgb 10.9 L (12.0-15.0) g/dL Hct 33.0 L (37.2-46.3) % Immature Gran # 0.13 H (0.00-0.04) X 10*3/uL Neutrophils # 14.95 H (1.80-7.70) X 10*3/uL Eosinophils # 0 L (0.04-0.35) X 10*3/uL Carbon Dioxide 20.5 L (21.6-31.8) mmol/L Glucose 113 H (70-110) mg/dL Calcium 7.8 L (8.7-10.3) mg/dL Total Protein 5.2 L (6.2-8.2) g/dL Albumin 3.1 L (3.8-4.9) g/dL Albumin/Globulin Ratio 1.48 L (1.60-3.17) Ratio Microbiology - Last 24 Hours (Table) 06/23/23 03:35 Gram Stain - Preliminary Appendix Wound Culture - Preliminary Gram Neg Bacilli Assessment and Plan Assessment: #1 acute appendicitis with evidence of sepsis, gangrene and microperforation status post appendectomy #2 elevated troponin of unclear significance #3 5.7 cm AAA, newly diagnosed, awaiting vascular consultation #4 hypertension #5 hyperlipidemia #6 nicotine dependence Plan: From cardiology's perspective medications were reviewed and we will continue the same. We will see the patient as an outpatient in the office following discharge at which time we will likely schedule for outpatient stress testing. Reinforced importance of smoking cessation. DIGITAL STRATEGY SPECIALIST note has been reviewed, I agree with a documented findings and plan of care. Patient was seen and examined.
[2023-06-25 08:15] VITALS: RESP 18
--- NOTE | 2023-06-25 10:38 | P.GSCN ---
History of Present Illness Consult date: 06/25/23 Reason for Consult: New abdominal aortic aneurysm 6 cm Requesting physician: Viji Amin History of present illness: This is a pleasant 53-year-old female who was transferred from [facility] 2 days ago with severe right lower abdominal pain. Patient reportedly had a CT of the abdomen which reportedly stated concerns for appendicitis and also reportedly mention abdominal aortic aneurysm nonruptured measuring 5.7 cm. There is no report currently available to review. Patient has a history of hypertension, hyperlipidemia and nicotine dependence smokes 1 pack/day. Patient underwent robotic assisted da Jv laparoscopic appendectomy on 06/23/2023 with findings of gangrene appendicitis involving the entire appendix with localized right lower quadrant peritonitis. Appendix culture with E. coli. She is currently on IV antibiotics. Patient is currently sitting up in the bedside chair having breakfast. She denies any previous knowledge of abdominal aortic aneurysm or any family history. Denies any chest pain, shortness of breath or mid abdominal pain. States abdominal pain improved since surgery now she does have some surgical discomfort. Patient has been afebrile. Cardiology has been consulted for elevated troponin who recommend 2D echo and further cardiac evaluation once patient is recovered from sepsis. Echocardiogram reported EF 55 to 60%, normal ventricle size and systolic function. Trace to mild mitral and tricuspid regurgitation. Review of Systems A 14 point review systems was completed all pertinent positives and negatives as stated in the HPI. Past Medical History Past Medical History: Hyperlipidemia, Hypertension Additional Past Medical History / Comment(s): AAA, smoker History of Any Multi-Drug Resistant Organisms: None Reported Past Surgical History: Appendectomy, Bowel Resection, Section Past Anesthesia/Blood Transfusion Reactions: No Reported Reaction Past Psychological History: No Psychological Hx Reported Smoking Status: Current every day smoker Past Alcohol Use History: None Reported Past Drug Use History: None Reported Medications and Allergies Home Medications Medication Instructions Recorded Confirmed Type Cyclobenzaprine [Flexeril] 5 - 10 mg PO HS PRN 06/23/23 06/23/23 History Losartan [Cozaar] 25 mg PO DAILY 06/23/23 06/23/23 History Simvastatin [Zocor] 10 mg PO HS 06/23/23 06/23/23 History Allergies Allergy/AdvReac Type Severity Reaction Status Date / Time No Known Allergies Allergy Verified 06/23/23 09:19 Surgical - Exam Vital Signs Temp Pulse Resp BP Pulse Ox 102.3 F H 122 H 20 142/81 92 L 06/22/23 22:26 06/22/23 22:26 06/22/23 22:26 06/22/23 22:26 06/22/23 22:26 General appearance: The patient is alert, oriented, appears in no acute distress. HET: Head is normocephalic and atraumatic. Pupils are equal and reactive. Neck: Supple. Heart: Regular. Lungs: Equal expansion, normal respiratory effort. Abdomen: Soft, nontender, nondistended. Surgical incision well-approximated. Extremities: Normal skin color and turgor. +2 radial pulses, palpable bilateral DP and PT pulses. Neurological: No focal deficits. Strength and sensation are grossly intact. Results - Labs 06/25/23 10:44 06/25/23 10:44 Abnormal Lab Results - Last 24 Hours (Table) 06/24/23 06/24/23 Range/Units 06:51 06:51 WBC 18.11 H (4.50-10.00) X 10*3/uL RBC 3.45 L (4.10-5.20) X 10*6/uL Hgb 10.9 L (12.0-15.0) g/dL Hct 33.0 L (37.2-46.3) % Immature Gran # 0.13 H (0.00-0.04) X 10*3/uL Neutrophils # 14.95 H (1.80-7.70) X 10*3/uL Eosinophils # 0 L (0.04-0.35) X 10*3/uL Carbon Dioxide 20.5 L (21.6-31.8) mmol/L Glucose 113 H (70-110) mg/dL Calcium 7.8 L (8.7-10.3) mg/dL Total Protein 5.2 L (6.2-8.2) g/dL Albumin 3.1 L (3.8-4.9) g/dL Albumin/Globulin Ratio 1.48 L (1.60-3.17) Ratio Microbiology - Last 24 Hours (Table) 06/23/23 03:35 Gram Stain - Preliminary Appendix Wound Culture - Preliminary Escherichia coli 06/23/23 05:54 Blood Culture - Preliminary Blood 06/23/23 05:28 Blood Culture - Preliminary Blood Diabetes panel 06/24/23 Range/Units 06:51 Sodium 135 (135-145) mmol/L Potassium 3.9 (3.5-5.5) mmol/L Chloride 104 (96-109) mmol/L Carbon Dioxide 20.5 L (21.6-31.8) mmol/L BUN 11.9 (9.0-27.0) mg/dL Creatinine 0.6 (0.6-1.5) mg/dL Glucose 113 H (70-110) mg/dL Calcium 7.8 L (8.7-10.3) mg/dL AST 19 (13-35) U/L ALT 8 (8-44) U/L Alkaline Phosphatase 64 (41-126) U/L Total Protein 5.2 L (6.2-8.2) g/dL Albumin 3.1 L (3.8-4.9) g/dL Calcium panel 06/24/23 Range/Units 06:51 Calcium 7.8 L (8.7-10.3) mg/dL Albumin 3.1 L (3.8-4.9) g/dL Pituitary panel 06/24/23 Range/Units 06:51 Sodium 135 (135-145) mmol/L Potassium 3.9 (3.5-5.5) mmol/L Chloride 104 (96-109) mmol/L Carbon Dioxide 20.5 L (21.6-31.8) mmol/L BUN 11.9 (9.0-27.0) mg/dL Creatinine 0.6 (0.6-1.5) mg/dL Glucose 113 H (70-110) mg/dL Calcium 7.8 L (8.7-10.3) mg/dL Adrenal panel 06/24/23 Range/Units 06:51 Sodium 135 (135-145) mmol/L Potassium 3.9 (3.5-5.5) mmol/L Chloride 104 (96-109) mmol/L Carbon Dioxide 20.5 L (21.6-31.8) mmol/L BUN 11.9 (9.0-27.0) mg/dL Creatinine 0.6 (0.6-1.5) mg/dL Glucose 113 H (70-110) mg/dL Calcium 7.8 L (8.7-10.3) mg/dL Total Bilirubin 0.3 (0.3-1.2) mg/dL AST 19 (13-35) U/L ALT 8 (8-44) U/L Alkaline Phosphatase 64 (41-126) U/L Total Protein 5.2 L (6.2-8.2) g/dL Albumin 3.1 L (3.8-4.9) g/dL Assessment and Plan Assessment: 1. Reported 5.7 cm abdominal aortic aneurysm from outside facility imaging, asymptomatic 2. Appendicitis status post robotic assisted laparoscopic appendectomy 3. Elevated troponin 4. Hypertension 5. Hyperlipidemia 6. Nicotine dependence Plan: 1. CTA abdomen and pelvis ordered 2. Continue with recommendations from general surgery 3. Continue with recommendations from cardiology 4. Recommend smoking cessation 5. Maintain optimal blood pressures 6. Patient is cleared from vascular surgery for discharge after CTA abdomen and pelvis completed. Patient instructed to follow-up with vascular surgery once healed from appendectomy. Thank you for this consultation, we can follow as an outpatient once patient is discharged. The impression and plan of care has been dictated as directed. I performed a history and examination of this patient, discussed the same with the dictator. I agree with the dictator's note ,documented as a scribe. Any additional findings or plans will be noted.
[2023-06-25 11:38] LABS: ALT 14 U/L (4-34); AST 22 U/L (14-36); African American GFR (CKD) >90 (>60 ml/min/1.73 sqM); Albumin 2.7 g/dL (3.5-5.0); Alkaline Phosphatase 69 U/L (38-126); Anion Gap 2 mmol/L; Blood Urea Nitrogen 10 mg/dL (7-17); Calcium 8.1 mg/dL (8.4-10.2); Carbon Dioxide 23 mmol/L (22-30); Chloride 113 mmol/L (98-107); Globulin 2.7 g/dL; Glucose 107 mg/dL (74-99); Non-African American GFR(CKD) >90 (>60 ml/min/1.73 sqM); Potassium 3.4 mmol/L (3.5-5.1); Sodium 138 mmol/L (137-145); Total Bilirubin 0.4 mg/dL (0.2-1.3); Total Protein 5.4 g/dL (6.3-8.2)
[2023-06-25 11:43] LABS: Basophils # (A) 0.1 k/uL (0-0.2); Basophils % (A) 0 %; Eosinophils # (A) 0.1 k/uL (0-0.7); Eosinophils % (A) 1 %; HCT 37.8 % (34.0-46.0); HGB 12.6 gm/dL (11.4-16.0); Lymphocytes # (A) 2.1 k/uL (1.0-4.8); Lymphocytes % (A) 19 %; MCH 31.5 pg (25.0-35.0); MCHC 33.4 g/dL (31.0-37.0); MCV 94.4 fL (80.0-100.0); Mean Platelet Volume 8.1; Monocytes # (A) 0.5 k/uL (0-1.0); Monocytes % (A) 5 %; Neutrophils # (A) 8.2 k/uL (1.3-7.7); Neutrophils % (A) 74 %; Platelet Count 352 k/uL (150-450); RBC 4.01 m/uL (3.80-5.40); RDW 13.3 % (11.5-15.5)
--- NOTE | 2023-06-25 14:22 | P.DS ---
Providers Date of admission: 06/23/23 01:46 Expected date of discharge: 06/25/23 Attending physician: Viji Amin Consults: 06/23/23 04:07 Consult Physician Routine Consulting Provider: Alcides Schuler Consult Reason/Comments: Sepsis, gangrenous appendicitis Do you want consulting provider notified?: Yes, Notify in am 06/23/23 04:08 Consult Physician Routine Consulting Provider: Inés Ham Consult Reason/Comments: New AAA 6-cm Do you want consulting provider notified?: Yes, Notify in am 06/23/23 06:33 Consult Physician Stat Consulting Provider: Malia Arellano Consult Reason/Comments: Elevated troponin Do you want consulting provider notified?: Yes Primary care physician: Physician Nonstaff Hospital Course: Discharge diagnosis 1. Gangrene appendicitis with sepsis and localized right lower quadrant peritonitis, microperforation 2. Sepsis due to acute appendicitis 3. Hyperlipidemia 4. Hypertensive heart disease 5. Abdominal aortic aneurysm Hospital course The patient is a 53-year-old female who presents with acute appendicitis including sepsis. She is status post robotic assisted laparoscopic appendectomy. Patient tolerated surgery well. Pain controlled. She is tolerating diet. She is having bowel movements. She is afebrile. Her leukocytosis is improving. She has been up and ambulating. She is stable for discharge. She has been cleared by all consultants for discharge. Physician Die Cast Patternmaker note has been reviewed by physician. Signing provider agrees with the documented findings, assessment, and plan of care. Patient Condition at Discharge: Stable Plan - Discharge Summary Discharge Rx Participant: No New Discharge Prescriptions: New Amoxic-Pot Clav 875-125Mg [Augmentin 875-125] 1 tab PO Q12HR 10 Days #20 tab Ibuprofen [Motrin] 600 mg PO Q8HR PRN #30 tab PRN Reason: Pain Acetaminophen Tab [Tylenol] 1,000 mg PO Q6HR PRN #30 tablet PRN Reason: Pain Continue Cyclobenzaprine [Flexeril] 5 - 10 mg PO HS PRN PRN Reason: Muscle Pain No Action Losartan [Cozaar] 25 mg PO DAILY Simvastatin [Zocor] 10 mg PO HS Discharge Medication List Cyclobenzaprine [Flexeril] 5 - 10 mg PO HS PRN 06/23/23 [History] Losartan [Cozaar] 25 mg PO DAILY 06/23/23 [History] Simvastatin [Zocor] 10 mg PO HS 06/23/23 [History] Acetaminophen Tab [Tylenol] 1,000 mg PO Q6HR PRN #30 tablet 06/25/23 [Rx] Amoxic-Pot Clav 875-125Mg [Augmentin 875-125] 1 tab PO Q12HR 10 Days #20 tab 06/25/23 [Rx] Ibuprofen [Motrin] 600 mg PO Q8HR PRN #30 tab 06/25/23 [Rx] Follow up Appointment(s)/Referral(s): Malia Arellano MD [STAFF PHYSICIAN] - 2 Weeks Ramses Boo DO [Doctor of Osteopathic Medicine] - 2 Weeks (follow up in 2-4 weeks, once healed/cleared from appendectomy) Jose E,Physician [Primary Care Provider] - 1-2 days Viji Amin MD [STAFF PHYSICIAN] - 06/26/23 Patient Instructions/Handouts: Nonruptured Abdominal Aortic Aneurysm (DC) Activity/Diet/Wound Care/Special Instructions: No lifting over 4 pounds in 4 weeks You May shower. No bath tub soaks for two weeks Use Tylenol and ibuprofen scheduled for the next 24-48 hours for best pain relief. Use ice along incisions for the today to prevent swelling. Patient will have telehealth visit with Dr. Amin tomorrow Discharge Disposition: HOME SELF-CARE
[2023-06-25 14:30] VITALS: BP 144/77; PULSE 76; TEMP 98.4
[2023-06-25] MEDS: POTASSIUM CHLORIDE ER 20 MEQ TAB.ER PO STA (15:28)
--- NOTE | 2023-06-26 13:00 | CT ---
EXAMINATION TYPE: CT angio abdomen pelvis CT DLP: 2128 mGycm, Automated exposure control for dose reduction was used. DATE OF EXAM: 06/25/2023 2:22 PM COMPARISON: . . CLINICAL INDICATION:Female, 53 years old with history of 5.7 cm AAA reported from outside facility CT ; H, 5.7 cm AAA reported from outside facility CT TECHNIQUE: Multiple thin slice sub-millimeter images were obtained after administration of contrast. 3-D reconstructed images and maximum intensity projection images were obtained. CT angio abdomen pel vis CT Contrast: Contrast used:100 ml mL of Isovue 370 with IV Contrast, Oral contrast used: without Oral Contrast None FINDINGS: CTA Abdomen and pelvis: The abdominal aorta demonstrates a 5.4 cm infrarenal abdominal aortic aneurys m. There is a very short transition normal caliber and then an independent tandem second aneurysm krystyna suring 3.2 cm. Measurements are made on the coronal 2-D images. The 3-D images confirm the 2-D findin gs. Atherosclerotic plaquing is identified within the abdominal aorta. The origins of the superior mesen teric artery, right renal artery and celiac axis appear unremarkable and show patency post contrast. The renal arteries are patent. Appears to takeoff within the aneurysm. The iliac vessels are normal i n morphology CTA Lower extremities: Right: The common femoral and superficial femoral arteries are patent. Left: The common femoral and superficial femoral arteries are patent. LOWER CHEST: There is a irdpu-[id number]-squeacrc right pleural effusion and a small left pleural effusion. T here is associated atelectasis versus focal airspace consolidation associated effusions. LIVER: Unremarkable GALLBLADDER AND BILE DUCTS: Unremarkable. PANCREAS: Unremarkable. SPLEEN: Unremarkable. ADRENAL GLANDS: Unremarkable. KIDNEYS AND URETERS: No evidence of hydronephrosis or renal calculus. The ureters are unremarkable. PELVIS BLADDER: Unremarkable REPRODUCTIVE: Unremarkable. ABDOMEN & PELVIS STOMACH AND BOWEL: No evidence of bowel obstruction. PERITONEUM: No evidence of pneumoperitoneum or free fluid. VASCULATURE: No evidence of aortic aneurysm. MUSCULOSKELETAL: No acute osseous abnormalities LYMPH NODES: No gross evidence for lymphadenopathy. SOFT TISSUE/ABDOMINAL WALL: Unremarkable IMPRESSION 1. No evidence of vascular occlusion. 2. Atherosclerotic disease involving abdominal aorta and lower extremity vasculature. 3. Series or tandem abdominal aortic infrarenal aneurysms. 4. Bilateral pleural effusions associated airspace consolidation. The airspace consolidation in the r ight lower lobe may indicate sizable pneumonia.
--- NOTE | 2023-07-02 17:04 | P.PN ---
Subjective Progress Note Date: 06/24/23 Principal diagnosis: Reason for follow-up is gangrenous appendicitis and intra-abdominal abscess Patient is a 53-year-old female with a past medical history significant for hypertension hyperlipidemia presenting to the hospital with abdominal pain of 1 day duration, patient has been diagnosed with the gangrenous appendicitis with localized peritonitis status post laparoscopic appendectomy and abdominal cultures. On today's evaluation that is 06/24/2023, the patient did have resolution of her fever and is afebrile this morning, the patient is breathing comfortably on room air denies any chest pain or shortness of breath or cough still complains of some abdominal pain though decreased in intensity no nausea no bleeding no bowel movement. Patient white count is down to 18.11 creatinine 0.6 Objective - Vital Signs Vital signs: Vital Signs Temp 97.4 F L 06/24/23 12:24 Pulse 62 06/24/23 12:24 Resp 17 06/24/23 12:24 BP 135/85 06/24/23 12:24 Pulse Ox 94 L 06/24/23 12:24 FiO2 Intake & Output 06/24/23 06/24/23 06/25/23 06:59 18:59 06:59 Other: # Voids 1 1 - Exam GENERAL DESCRIPTION: Middle-aged female lying in bed in no distress RESPIRATORY SYSTEM: Unlabored breathing , decreased breath sounds at bases HEART: S1 S2 regular rate and rhythm , ABDOMEN: Soft , mild tenderness EXTREMITIES: No edema feet - Labs CBC & Chem 7: 06/25/23 10:44 06/25/23 10:44 Labs: Abnormal Lab Results - Last 24 Hours (Table) 06/24/23 06/24/23 Range/Units 06:51 06:51 WBC 18.11 H (4.50-10.00) X 10*3/uL RBC 3.45 L (4.10-5.20) X 10*6/uL Hgb 10.9 L (12.0-15.0) g/dL Hct 33.0 L (37.2-46.3) % Immature Gran # 0.13 H (0.00-0.04) X 10*3/uL Neutrophils # 14.95 H (1.80-7.70) X 10*3/uL Eosinophils # 0 L (0.04-0.35) X 10*3/uL Carbon Dioxide 20.5 L (21.6-31.8) mmol/L Glucose 113 H (70-110) mg/dL Calcium 7.8 L (8.7-10.3) mg/dL Total Protein 5.2 L (6.2-8.2) g/dL Albumin 3.1 L (3.8-4.9) g/dL Albumin/Globulin Ratio 1.48 L (1.60-3.17) Ratio Microbiology - Last 24 Hours (Table) 06/23/23 05:54 Blood Culture - Preliminary Blood 06/23/23 05:28 Blood Culture - Preliminary Blood 06/23/23 03:35 Gram Stain - Preliminary Appendix Wound Culture - Preliminary Gram Neg Bacilli Assessment and Plan (1) Leukocytosis Status: Acute Code(s): D72.829 - ELEVATED WHITE BLOOD CELL COUNT, UNSPECIFIED SNOMED Code(s): 388657199 (2) Gangrenous appendicitis Status: Acute Code(s): K35.891 - OTHER ACUTE APPENDICITIS WITHOUT PERFORATION, WITH GANGRENE SNOMED Code(s): 4551482646 Plan: 1patient presented to hospital with sepsis in this patient who did have a fever tachycardia elevated white count source is acute gangrenous appendicitis with microperforation and peritonitis will need to cover for the enteric gram- negative both aerobes and anaerobes 2-blood and abdominal culture has been obtained which are currently pending 3-patient white count is slightly improved we will keep the patient on Zosyn while waiting for the culture to finalize to determine discharge antibiotics Dictation was produced using [employer] dictation software. please excuse any grammatical, word or spelling errors. Time with Patient: Less than 30
--- NOTE | 2023-07-02 17:05 | P.PN ---
Subjective Progress Note Date: 06/25/23 Principal diagnosis: Reason for follow-up is gangrenous appendicitis and intra-abdominal abscess Patient is a 53-year-old female with a past medical history significant for hypertension hyperlipidemia presenting to the hospital with abdominal pain of 1 day duration, patient has been diagnosed with the gangrenous appendicitis with localized peritonitis status post laparoscopic appendectomy and abdominal cultures. On today's evaluation that is 06/25/2023, Patient is afebrile patient is currently on room air and denies having any shortness of breath, the patient den ies any chest pain or cough, the patient denies any nausea vomiting abdominal pain has decreased intensity did have a bowel movement. Patient white count is down to 11.0 creatinine 0.67 abdominal culture with E. coli Klebsiella and anaerobes Objective - Vital Signs Vital signs: Vital Signs Temp 97.4 F L 06/25/23 07:12 Pulse 70 06/25/23 07:12 Resp 18 06/25/23 07:12 BP 156/88 06/25/23 07:12 Pulse Ox 95 06/25/23 08:24 FiO2 Intake & Output 06/24/23 06/25/23 06/25/23 18:59 06:59 18:59 Other: Voiding Method Toilet Toilet # Voids 1 1 - Exam GENERAL DESCRIPTION: Middle-aged female lying in bed in no distress RESPIRATORY SYSTEM: Unlabored breathing , decreased breath sounds at bases HEART: S1 S2 regular rate and rhythm , ABDOMEN: Soft , mild tenderness EXTREMITIES: No edema feet - Labs CBC & Chem 7: 06/25/23 10:44 06/25/23 10:44 Labs: Microbiology - Last 24 Hours (Table) 06/23/23 03:35 Anaerobic Culture - Preliminary Appendix Anaerobic Gm Negative Bacilli 06/23/23 03:35 Gram Stain - Preliminary Appendix Wound Culture - Preliminary Escherichia coli 06/23/23 05:54 Blood Culture - Preliminary Blood 06/23/23 05:28 Blood Culture - Preliminary Blood Assessment and Plan (1) Gangrenous appendicitis Status: Acute Code(s): K35.891 - OTHER ACUTE APPENDICITIS WITHOUT PERFORATION, WITH GANGRENE SNOMED Code(s): 1765684004 (2) Leukocytosis Status: Acute Code(s): D72.829 - ELEVATED WHITE BLOOD CELL COUNT, UNSPECIFIED SNOMED Code(s): 981764273 Plan: 1patient presented to hospital with sepsis in this patient who did have a fever tachycardia elevated white count source is acute gangrenous appendicitis with microperforation and peritonitis will need to cover for the enteric gram- negative both aerobes and anaerobes 2-blood and abdominal culture has been obtained which are currently growing E. coli Klebsiella and anaerobes 3-patient did have clinical improvement and white count is down to 11,000 we will finish therapy with Augmentin x 10 days on the basis of sensitivities as reported by micro lab and close outpatient follow-up discussed with the surgical FEED MILL OPERATOR Dictation was produced using [employer] software. please excuse any grammatical, word or spelling errors. Time with Patient: Less than 30
== END 2023-06-25 16:12 | disposition home or self-care (01) | DRG 853 ==
LOC: EC 22:24 → 5NMEDONC 06-23 01:45 → OBSVTOIN 06-23 01:46 → 5NMEDONC 06-23 04:12
PROVIDERS: ADMIT Surgery Plastic and Reconstructive Surgery; ATTEND Surgery Plastic and Reconstructive Surgery
PROC: 8E0W4CZ Robotic Assisted Procedure of Trunk Region, Percutaneous Endoscopic Approach (ICD-10-PCS; principal; 2023-06-23 02:30)
PROC: 0DTJ4ZZ Resection of Appendix, Percutaneous Endoscopic Approach (ICD-10-PCS; principal; 2023-06-23 02:30)
DX: A41.51 Sepsis due to Escherichia coli [E. coli] (principal); K35.33 Acute appendicitis with perforation, localized peritonitis, and gangrene, with abscess; I71.40 Abdominal aortic aneurysm, without rupture, unspecified; E78.5 Hyperlipidemia, unspecified; R09.02 Hypoxemia; R79.89 Other specified abnormal findings of blood chemistry; I11.9 Hypertensive heart disease without heart failure; F17.210 Nicotine dependence, cigarettes, uncomplicated; Z79.899 Other long term (current) drug therapy; Z79.82 Long term (current) use of aspirin; Z71.6 Tobacco abuse counseling
CPT/HCPCS: 74174; 80053; 83605; 84484; 85025; 85610; 85730; 87040; 87070; 87075; 87077; 87186; 87205; 88304; 93306; 94760; 96365; 96372; 96375; 99285

== ENCOUNTER 2023-09-24 08:07 | Inpatient (IN) | payer BC, OTHER ==
[2023-09-21 10:08] VITALS: BMI 30.2
[2023-09-24] MEDS ORDERED: MANNITOL 25% 12.5 GM/50 ML VIAL ONE (10:50)
[2023-09-24] MEDS ORDERED: FUROSEMIDE 10 MG/ML 2 ML VIAL ONE (10:50)
[2023-09-24] MEDS ORDERED: fentaNYL (PF) 50 MCG/ML 2 ML AMP ONE (10:50)
[2023-09-24] MEDS ORDERED: SUCCINYLCHOLINE CHLORIDE 200 MG/10 ML VIAL IV ONE (10:50)
[2023-09-24] MEDS ORDERED: MIDAZOLAM 2 MG/2 ML VIAL ONE (10:50)
[2023-09-24] MEDS ORDERED: NEOSTIGMINE 1 MG/ML 10 ML VIAL ONE (10:50)
[2023-09-24] MEDS ORDERED: ALBUTEROL HFA INHALER INHALATION ONE (10:50)
[2023-09-24] MEDS ORDERED: PROTAMINE SULFATE 10 MG/ML 5 ML VIAL ONE (10:50)
[2023-09-24] MEDS ORDERED: ROCURONIUM 10 MG/ML (5 ML VIAL) IV ONE (10:50)
[2023-09-24] MEDS ORDERED: ALBUMIN HUMAN 5% (25gm) 500 ML VIAL IVPB ONE (10:50)
[2023-09-24] MEDS ORDERED: PROPOFOL 10 MG/ML 20 ML VIAL IV ONE (10:50)
[2023-09-24] MEDS ORDERED: GLYCOPYRROLATE 0.2 MG/ML 2 ML VIAL ONE (10:50)
[2023-09-24] MEDS ORDERED: HYDROmorphone (PF) 1 MG/ML ONE (10:50)
[2023-09-24 16:00] LABS: Glucose,Whole Blood 147 mg/dL (70-110)
[2023-09-25] MEDS ORDERED: ONDANSETRON 4 MG/2 ML VIAL ONE (06:16)
[2023-09-25] MEDS ORDERED: diphenhydrAMINE 50 MG/ML 1 ML VIAL ONE ×2 (08:53→15:42)
[2023-09-26] MEDS ORDERED: HYDROmorphone 1 MG/ML 1 ML SYRINGE ONE ×2 (10:58→16:35)
[2023-09-27] MEDS ORDERED: HYDROmorphone 1 MG/ML 1 ML SYRINGE ONE ×5 (01:03→20:33)
[2023-09-27] MEDS ORDERED: PANTOPRAZOLE 40 MG/10 ML VIAL ONE (09:28)
[2023-09-28] MEDS ORDERED: FUROSEMIDE 10 MG/ML 4 ML VIAL ONE ×2 (00:35→11:55)
[2023-09-28] MEDS ORDERED: HYDROmorphone 1 MG/ML 1 ML SYRINGE ONE ×2 (00:50→23:56)
[2023-09-28] MEDS ORDERED: PANTOPRAZOLE 40 MG/10 ML VIAL ONE (08:09)
[2023-09-28] MEDS ORDERED: HYDROcodone/APAP 5-325MG 1 EACH TAB ONE (21:21)
[2023-09-29] MEDS ORDERED: PANTOPRAZOLE 40 MG/10 ML VIAL ONE (08:16)
[2023-09-29] MEDS ORDERED: HYDROcodone/APAP 5-325MG 1 EACH TAB ONE (12:20)
--- NOTE | 2023-10-19 16:26 | XR ---
EXAMINATION TYPE: XR chest 1V DATE OF EXAM: 10/19/2023 COMPARISON: None HISTORY: 53-year-old female increased oxygen demands TECHNIQUE: Single frontal view of the chest is obtained. FINDINGS: Very low lung volumes. There appears to be a right IJ sheath. Heart borderline in size. Pe rihilar and diffuse interstitial opacities as well as patchy right basilar opacity. IMPRESSION: Limited by hypoventilatory changes. There are perihilar and interstitial opacities along with patchy right basilar opacity. Unclear if this represents sequela of CHF versus underlying pneum onia/aspiration.
--- NOTE | 2023-10-25 15:10 | P.OP ---
Date of Procedure: 09/24/23 Preoperative Diagnosis: 5.9 cm infrarenal abdominal aortic aneurysm. Postoperative Diagnosis: Same. Procedure(s) Performed: Rescetion of abdominal aoric aneurysm. Implants: None Anesthesia: COREYA Surgeon: Ramses Boo Construction Or Leak Gang Laborer #1: Jonatan Azul Estimated Blood Loss (ml): 500 Pathology: none sent Condition: stable Disposition: ICU Indications for Procedure: Abdominal Aortic aneurysm. Operative Findings: Abdominal aortic aneurysm. Description of Procedure: Patient was brought the op room placed in the supine position and administered general endotracheal anesthesia administered by the department of anesthesiology. Patient received intravenously administered prophylactic antibiotics in the perioperative phase. Patient's abdomen, pelvis and upper thigh areas were sterilely prepped and draped in the usual manner. Skin incision was made starting at the subxiphoid level extending inferiorly down to the level of the pubis. Incision was deepened through the subcutaneous tissues. Hemostasis was achieved using electrocautery. Fascia was incised and entrance was gained into the peritoneal cavity. Some adhesions of the omentum to the anterior abdominal wall were encountered and these were taken down with scissor dissection and electrocautery where appropriate. The small bowel was run from the ligament of Treitz to the cecum. No abnormality of the small bowel was identified. The large bowel was inspected and found to be essentially unremarkable specifically with no tumor or mass noted. Bookwalter retractor was utilized and the small bowel was packed into the right upper and lower quadrants. Electrocautery was utilized to incise the posterior peritoneum and the dissection was carried down to the level of the abdominal aortic aneurysm. The dissection was carried cephalad and care was taken to avoid injury to the mesenteric vein. The dissection was carried cephalad to the level of the renal vein above the origin of the aneurysm. The dissection was then carried inferiorly down to the bifurcation. Circumferential dissection was performed on the common iliac arteries and a vessel loop was placed about the each of the common iliac arteries. The aneurysmal change did not extend into the renal arteries and was felt a sleeve/tube graft repair would be appropriate. The patient was systemically heparinized and ACT's were drawn and additional doses of heparin were administered based on ACT's. Clamp was placed at the proximal infrarenal aortic segment and occluded. Likewise clamp was placed on both left and right common iliac arteries. Arteriotomy was made in the aneurysmally degenerate segment and carried cephalad. Thrombus was encountered and this was removed. The arteriotomy was extended to the level of the normal infrarenal arterial segment and was teed off at that level. The arteriotomy was then extended inferiorly and teed off at the very distal segment of the abdominal aorta. The inferior mesenteric artery demonstrated no evidence of backbleeding. Lumbars were encountered and backbleeding through the lumbars were controlled with Prolene suture. All luminal thrombus was removed. An 18 mm PTFE graft was selected and end to end anastomosis between the graft and the proximal aortic segment was performed with 3-0 Prolene suture. Anastomotic line was reinforced with pledgets. The anastomotic line was com pleted and tested and found to be hemostatic to arterial flow. The graft was cut to the appropriate length and end to side anastomosis between the graft and the lower aortic segment was performed with 3-0 Prolene suture again buttressed with pledgets. Backbleeding through both the left and right iliac arteries demonstrated no return of thrombus and these were flushed with heparinized saline solution. The anastomotic line was completed after the aortic segment was flushed with no thrombus being returned. 1 area of bleeding along the anastomotic line was encountered and this was controlled with Prolene suture. Excellent femoral pulses were identified bilaterally. The entire abdomen was inspected for hemostasis and this was judged to be adequate. The abdomen and pelvic cavities were then irrigated with antibiotic- containing solution. The posterior peritoneum was reapproximated with Vicryl suture after the aneurysmal sac was reapproximated also with Vicryl suture. The small bowel was then returned to its normal anatomic position. No injury to either the large or small bowel was identified. Manually good position of the nasogastric tube was confirmed. The omentum was returned to its normal anatomic position. Anterior abdominal wall was closed with looped 2-0 PDS suture. Skin edges were reapproximated skin manish. Appropriate dressings were applied. Patient tolerated the procedure well, awoke without apparent complication was transferred to the recovery area in satisfactory and stable condition. Palpable femoral and pedal pulses were present postoperatively as they were preoperatively bilaterally.
== END 2023-09-29 12:30 | disposition home or self-care (01) | DRG 268 ==
LOC: 2ORMAIN 08:07
PROVIDERS: ADMIT Surgery; ATTEND Surgery
PROC: 0D9670Z Drainage of Stomach with Drainage Device, Via Natural or Artificial Opening (ICD-10-PCS; 2023-09-24)
PROC: 00HU33Z Insertion of Infusion Device into Spinal Canal, Percutaneous Approach (ICD-10-PCS; 2023-09-24)
PROC: 3E0R3BZ Introduction of Anesthetic Agent into Spinal Canal, Percutaneous Approach (ICD-10-PCS; 2023-09-24)
PROC: 04C00ZZ Extirpation of Matter from Abdominal Aorta, Open Approach (ICD-10-PCS; 2023-09-24)
PROC: 04R00JZ Replacement of Abdominal Aorta with Synthetic Substitute, Open Approach (ICD-10-PCS; principal; 2023-09-24 10:30)
DX: I71.43 Infrarenal abdominal aortic aneurysm, without rupture (principal); J96.01 Acute respiratory failure with hypoxia; I74.09 Other arterial embolism and thrombosis of abdominal aorta; J44.9 Chronic obstructive pulmonary disease, unspecified; I10 Essential (primary) hypertension; F17.210 Nicotine dependence, cigarettes, uncomplicated; E78.2 Mixed hyperlipidemia; K66.0 Peritoneal adhesions (postprocedural) (postinfection); Z90.49 Acquired absence of other specified parts of digestive tract; Z79.899 Other long term (current) drug therapy; Z79.82 Long term (current) use of aspirin
CPT/HCPCS: 80048; 80053; 85025